=== PATIENT | female | born 1995 | race Caucasian/White ===

== ENCOUNTER 2018-04-24 19:00 | Emergency (ER) | payer BC ==
--- NOTE | 2018-04-24 20:01 | UC ---
Complaint Female HPI - HPI Summary HPI Summary: 22-year-old woman comes in to clinic with a chief complaint of burning with urination increased frequency and urgency for 1 day. Patient's had a UTI before and this is what it feels like. Denies any abnormal vaginal discharge or concern of STI. Some suprapubic pain this morning but does not have that now. No flank pain no fevers feels well otherwise. - History Of Current Complaint Chief Complaint: UCGU Stated Complaint: URINARY COMPLAINT Time Seen by Provider: 04/24/18 19:56 Hx Last Menstrual Period: 04/21/18 Pain Intensity: 0 - Allergies/Home Medications Allergies/Adverse Reactions: Allergies Allergy/AdvReac Type Severity Reaction Status Date / Time No Known Allergies Allergy Verified 04/24/18 19:46 Home Medications: Home Medications Etonogestrel [Nexplanon] 68 mg IMPLANT 04/24/18 [History] PMH/Surg Hx/FS Hx/Imm Hx Previously Healthy: Yes - Surgical History Surgical History: None - Family History Known Family History: Positive: Non-Contributory - Social History Alcohol Use: None Substance Use Type: None Smoking Status (MU): Never Smoked Tobacco Review of Systems All Other Systems Reviewed And Are Negative: Yes Constitutional: Positive: Negative Skin: Positive: Negative Eyes: Positive: Negative ENT: Positive: Negative Respiratory: Positive: Negative Cardiovascular: Positive: Negative Gastrointestinal: Positive: Negative Genitourinary: Positive: Dysuria, Frequency, Urgency. Negative: Vaginal/Penile Discharge Motor: Positive: Negative Neurovascular: Positive: Negative Musculoskeletal: Positive: Negative Neurological: Positive: Negative Psychological: Positive: Negative Is Patient Immunocompromised?: No Physical Exam Triage Information Reviewed: Yes Appearance: Well-Appearing, No Pain Distress, Well-Nourished Vital Signs: Initial Vital Signs Temp 98.1 F 04/24/18 19:40 Pulse 58 04/24/18 19:40 Resp 18 04/24/18 19:40 BP 110/60 04/24/18 19:40 Pulse Ox 100 04/24/18 19:40 Vital Signs Reviewed: Yes Eye Exam: Normal Eyes: Positive: Conjunctiva Clear Neck exam: Normal Neck: Positive: Supple Respiratory: Positive: Lungs clear, Normal breath sounds, No respiratory distress Cardiovascular: Positive: RRR Abdomen Description: Positive: Nontender, Soft. Negative: CVA Tenderness (R), CVA Tenderness (L) Musculoskeletal Exam: Normal Neurological Exam: Normal Neurological: Positive: Alert, Muscle Tone Normal Psychological Exam: Normal Psychological: Positive: Age Appropriate Behavior Skin Exam: Normal Complaint Female Dx - Course Course Of Treatment: Patient is taking Azo therefore the urinalysis could not be done here in clinic. A urine culture has been sent. Discussed with the patient that if she worsens or has any questions or concerns she should get reevaluated right away. - Differential Dx/Diagnosis Provider Diagnosis: UTI (urinary tract infection) Discharge - Sign-Out/Discharge Documenting (check all that apply): Patient Departure All imaging exams completed and their final reports reviewed: No Studies - Discharge Plan Condition: Stable Disposition: HOME Prescriptions: Cephalexin CAP* [Keflex CAP*] 500 mg PO TID #21 cap Patient Education Materials: Urinary Tract Infection in Women (ED) Referrals: [facility] [Outside] Additional Instructions: FOLLOW UP WITH YOUR DOCTOR IF NOT COMPLETELY IMPROVED. GET RECHECKED FOR ANY WORSENING OF YOUR CONDITION OR QUESTIONS OR CONCERNS. - Billing Disposition and Condition Condition: STABLE Disposition: Home
== END 2018-04-24 20:09 | disposition home or self-care (01) ==
LOC: UCCORT 19:00
DX: N39.0 Urinary tract infection, site not specified (principal); B96.20 Unspecified Escherichia coli [E. coli] as the cause of diseases classified elsewhere
CPT/HCPCS: 87077; 87086; 87186; 99202; G0463

== ENCOUNTER 2018-09-04 20:41 | Emergency (ER) | payer BC ==
[2018-09-04 21:26] VITALS: BP 117/50
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
[2018-09-04] MEDS ORDERED: Ibuprofen TAB* 400 MG PO ONE (21:35)
[2018-09-04] MEDS ORDERED: Acetaminophen TAB* 325 MG PO ONE (21:35)
== END 2018-09-04 22:03 | disposition home or self-care (01) ==
LOC: UCCORT 20:41
DX: T23.201D Burn of second degree of right hand, unspecified site, subsequent encounter (principal); T31.0 Burns involving less than 10% of body surface; X12.XXXD Contact with other hot fluids, subsequent encounter; Y92.9 Unspecified place or not applicable
CPT/HCPCS: 16000; 16020; 99212; A9270-GY; G0463

== ENCOUNTER 2018-09-05 12:36 | Emergency (ER) | payer BC ==
[2018-09-05 12:45] VITALS: BP 118/59
[2018-09-05] MEDS ORDERED: Silver Sulfadiazine 1%* 20 GM TOPICAL ONE ×2 (12:52→12:55)
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
== END 2018-09-05 13:12 | disposition home or self-care (01) ==
LOC: UCCORT 12:36
DX: T23.201A Burn of second degree of right hand, unspecified site, initial encounter (principal); T31.0 Burns involving less than 10% of body surface; X10.2XXA Contact with fats and cooking oils, initial encounter; Y92.9 Unspecified place or not applicable
CPT/HCPCS: 99213; A9270-GY; G0463

== ENCOUNTER 2018-11-24 12:42 | Emergency (ER) | payer BC ==
[2018-11-24 12:52] VITALS: BP 114/62
--- NOTE | 2018-11-24 12:54 | UC ---
Complaint Female HPI - HPI Summary HPI Summary: Dysuria x2 days. Has had uti before and knows she has one. also has assoc. urgency. denies fever, n/v, back pain. has nexplanon. on accutane. - History Of Current Complaint Chief Complaint: UCGU Stated Complaint: URINARY Time Seen by Provider: 11/24/18 12:45 Hx Obtained From: Patient Hx Last Menstrual Period: 04/21/18 ?: No - nexplanon Severity Initially: Mild Severity Currently: Mild Character: Burning Aggravating Factor(s): Urination Alleviating Factor(s): Meds - azo Associated Signs And Symptoms: Negative: Fever, Back Pain, Vaginal Discharge - Allergies/Home Medications Allergies/Adverse Reactions: Allergies Allergy/AdvReac Type Severity Reaction Status Date / Time No Known Allergies Allergy Verified 11/24/18 12:52 Home Medications: Home Medications Accutane 40 mg PO DAILY 11/24/18 [History] PMH/Surg Hx/FS Hx/Imm Hx - Additional Past Medical History Additional PMH: acne Previously Healthy: Yes - Surgical History Surgical History: Yes Surgery Procedure, Year, and Place: RIGHT BROKEN ARM. NEXPLANON IN ARM - Family History Known Family History: Positive: Non-Contributory Negative: Diabetes - Social History Alcohol Use: None Substance Use Type: None Smoking Status (MU): Never Smoked Tobacco - Immunization History Most Recent Tetanus Shot: unknown Review of Systems All Other Systems Reviewed And Are Negative: Yes Constitutional: Negative: Fever, Chills Skin: Negative: Rash Gastrointestinal: Negative: Abdominal Pain, Vomiting, Nausea Genitourinary: Positive: Dysuria, Frequency, Urgency. Negative: Hematuria, Vaginal/Penile Discharge Physical Exam Triage Information Reviewed: Yes Appearance: Well-Appearing Vital Signs Reviewed: Yes Respiratory Exam: Normal Cardiovascular Exam: Normal Abdomen Description: Positive: Nontender, Soft. Negative: CVA Tenderness (R), CVA Tenderness (L) Neurological: Positive: Alert Skin: Negative: Rashes Complaint Female Dx - Course Course Of Treatment: Acute dysuria and urgency in a pt. w/ Nexplanon. UA unable to perform due to Azo. Vitals good. exam unremarkable. decliners sti testing. urine hcg neg. Will give bactrim for presumed uti, urine cx sent. - Differential Dx/Diagnosis Differential Diagnosis/HQI/PQRI: , Sexually Transmitted Disease, Urinary Tract Infection Provider Diagnosis: Dysuria Discharge - Sign-Out/Discharge Documenting (check all that apply): Patient Departure All imaging exams completed and their final reports reviewed: No Studies - Discharge Plan Condition: Good Disposition: HOME Prescriptions: Sulfamethox/Trimethoprim DS* [Bactrim DS 800/160 TAB*] 1 tab PO BID 3 Days #6 tab Patient Education Materials: Dysuria (ED) Referrals: Cammy Mcmullen [employer] [Primary Care Provider] - Additional Instructions: If not improving please follow up with pcp - Billing Disposition and Condition Condition: GOOD Disposition: Home
== END 2018-11-24 13:27 | disposition home or self-care (01) ==
LOC: UCCORT 12:42
DX: R30.0 Dysuria (principal)
CPT/HCPCS: 87077; 87086; 87186; 99212; G0463

== ENCOUNTER 2019-03-11 17:45 | Emergency (ER) | payer BC, OTHER ==
[2019-03-11 18:13] VITALS: BP 117/61
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
== END 2019-03-11 18:43 | disposition home or self-care (01) ==
LOC: UCCORT 17:45
DX: J02.9 Acute pharyngitis, unspecified (principal); M54.2 Cervicalgia; R09.89 Other specified symptoms and signs involving the circulatory and respiratory systems; V89.2XXA Person injured in unspecified motor-vehicle accident, traffic, initial encounter; Y92.9 Unspecified place or not applicable
CPT/HCPCS: 87651; 99212; G0463